=== PATIENT | female | born 1970 | race Caucasian/White ===

== ENCOUNTER 2016-12-23 15:37 | Emergency (ER) | payer MEDICAID ==
--- NOTE | 2016-12-23 16:01 | EDPHY ---
H & P Stated Complaint: LLq pain x 7 days, no bm x 5 days, headache HPI/ROS: CHIEF COMPLAINT: Abdominal pain, constipation. HISTORY OF PRESENT ILLNESS: The patient is a 46 year old female presenting to the emergency department with 4 days of abdominal pain. Her pain is localized to the lower abdomen and intermittently feels sharp and stabbing. The patient has not had a bowel movement for the past 4 days. She usually has 2 BMs per day. She tried Fleet to help with constipation yesterday as well as prunes and fluids, but has not found any relief. Today she developed moderate nausea. She denies fever. No urinary complains. REVIEW OF SYSTEMS: A ten point review of systems was performed and is negative with the exception of the items mentioned in the HPI. Source: Patient Exam Limitations: No limitations - Personal History LMP (Females 10-55): Unknown Current Tetanus/Diphtheria Vaccine: Unsure Current Tetanus Diphtheria and Acellular Pertussis (TDAP): Unsure Tetanus Vaccine Date: < 10 years - Medical/Surgical History Hx Asthma: No Hx Chronic Respiratory Disease: No Hx Diabetes: No Hx Cardiac Disease: No Hx Renal Disease: No Hx Cirrhosis: No Hx Alcoholism: No Hx HIV/AIDS: No Hx Splenectomy or Spleen Trauma: No Other PMH: depression, TUBAL LIGATION - Social History Smoking Status: Current every day smoker Alcohol Use: None Drug Use: Marijuana Additional Social History: Cigarette smoker, 1/2 pack per day. 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 - Physical Exam Exam: General Appearance: Alert. Vital signs reviewed. Blood pressure 125/77 at triage. Eyes: Pupils equal and round, no conjunctival injection, no discharge. Anicteric. ENT, Mouth: Mucous membranes are moist, no oropharyngeal erythema or edema. Neck: No lymphadenopathy, supple. Respiratory: Lungs are clear to auscultation; no wheezes, rales, or rhonchi. Cardiovascular: Regular rate and rhythm; no murmur, rub, or gallop. Gastrointestinal: Abdomen is soft, left lower quadrant tenderness, no guarding , no masses or organomegaly, bowel sounds normal. Skin: Circular or oblong erythematous lesions with central clearing. Flat and slightly itchy. Rectal: Brown stool, no hemorrhoids. Nontender. Back: Nontender to palpation over the thoracolumbar spine. No CVAT. Extremities: No lower extremity edema, no calf tenderness or swelling. Neurological: Alert and oriented. Moving all four extremities easily and equally. Psychiatric: Normal affect. Constitutional: Initial Vital Signs Temperature (C) 36.5 C 12/23/16 15:42 Heart Rate 81 12/23/16 15:42 Respiratory Rate 20 12/23/16 15:42 Blood Pressure 125/77 H 12/23/16 15:42 O2 Sat (%) 97 12/23/16 15:42 O2 Delivery Mode Room Air Allergies/Adverse Reactions: No Known Allergies Allergy (Verified 05/18/15 10:58) Home Medications: Medication Instructions Recorded Zoloft 100mg (RX) 200 mg 08/27/13 Gabapentin 07/26/16 Topamax 07/26/16 Medical Decision Making - Diagnostics Imaging: Study: Renal/pelvic ultrasound was obtained. Results: 1. No ovarian torsion or significant free fluid. 2. Nonvisualization left ovary. 3. Right ovarian 2.3- cm simple cyst or dominant follicle. 4. Prominent left adnexal vessels, which may represent pelvic congestion. Images were interpreted by the radiologist, Dr. Yoder. I viewed the images myself on the PACS system. ED Course/Re-evaluation: IV was established, the patient received 75mcg IV Fentanyl. BMP, CMC, and UA are pending. 5:45 p.m.: UA is normal. Blood work shows no significant findings. I reexamined the patient. She continues to have some abdominal pain. US performed to assess ovaries. Left ovary not visualized, signs of pelvic congestion. She also is constipated, per her report. I looked up the patient in the [facility] and found multiple narcotic prescriptions in the last year. She receives monthly prescriptions for Percocet and Clonazepam. She last filled RX for Percocet , dispense #120, on . She does not have any pain medicine at home now apparently, meaning that the 120 Percocets are gone in three weeks. She has received RX for opiates monthly for the past six months. I discussed this with the patient. She will not receive be receiving any presciption pain medications from [facility], Emergency Department. I do not suspect a life or limb threatening problem or an emergent condition. She does not have pain with palpation of appendix. She has not had vomiting and I don't suspect SBO. No urinary signs or symptoms, making UTI or pyelonephritis quite unlikely. No flank pain, I doubt ureterolithiasis. No upper abdominal pain and I do not suspect cholecystitis or pancreatitis. I think that she is drug seeking. - Data Points Laboratory Results: Laboratory Results 12/23/16 16:40 12/23/16 16:40 Medications Given: Discontinued Medications Fentanyl (Sublimaze) 75 mcg IVP EDNOW ONE Stop: 12/23/16 16:20 Last Admin: 12/23/16 16:40 Dose: 75 mcg Departure - Departure Disposition: Home, Routine, Self-Care Clinical Impression: Constipation Condition: Good Instructions: Constipation (ED) Additional Instructions: Your ultrasound today showed some signs of pelvic congestion. Followup with your primary care physician Dr. Cummings or the referred Category Development Manager for further evaluation. Followup with a litigation partner if your rash persists. Adult Pain & Fever Control: We recommend Acetaminophen (Tylenol) and Ibuprofen (Motrin,Advil) for pain and fever control. When fever is high or pain severe, both drugs can be used at the same time, but at different intervals. Please note the time differences. Your dose is: Acetaminophen 650mg every 4 to 6 hours Ibuprofen 400mg every 4 hours with food Referrals: GOPAL CUMMINGS [Other] - As per Instructions Nanette Borja MD [Medical Doctor] - As per Instructions (Category Development Manager) HERSON CONTRERAS [Non Staff Provider (MD)] - As per Instructions Report Scribed for: Padma Olea Report Scribed by: Nhung Faye Date of Report: 12/23/16 Time of Report: 16:12 Physician Review and Approval Statement: 12/23/16 16:01 Portions of this note were transcribed by the medical billing and coding specialist. I, Dr. Padma Olea, personally performed the history, physical exam, and medical decision- making; and confirmed the accuracy of the information in the transcribed note.
[2016-12-23] MEDS ORDERED: fentaNYL 100 MCG/2 ML INJ IVP ONE (16:19)
[2016-12-23 16:57] LABS: COLOR YELLOW; LEUKOCYTE ESTERASE,URINE NEGATIVE (NEGATIVE); NITRITE,URINE NEGATIVE (NEGATIVE)
[2016-12-23 17:00] LABS: % IMMATURE GRANULYOCYTES 0.6 % (0.0-1.1); ABSOLUTE IMMATURE GRANULOCYTES 0.04 10^3/uL (0.00-0.10); ADD DIFF? NO; ADD MORPH? NO; ADD SCAN? NO; ATYPICAL LYMPHOCYTE FLAG 10 (0-99); FRAGMENT RBC FLAG 0 (0-99); HEMATOCRIT 40.6 % (38.0-47.0); HEMOGLOBIN 13.5 g/dL (12.6-16.3); LEFT SHIFT FLG 0 (0-99); LIPEMIA HEMOLYSIS FLAG 80 (0-99); MEAN CELL HEMOGLOBIN 29.9 pg (27.9-34.1); MEAN CELL HEMOGLOBIN CONCENTR. 33.3 g/dL (32.4-36.7); MEAN PLATELET VOLUME 11.4 fL (8.7-11.7); PLATELET CLUMPS FLAG 0 (0-99); PLATELET COUNT 232 10^3/uL (150-400); RED BLOOD CELL COUNT 4.51 10^6/uL (4.18-5.33); RED CELL DISTRIBUTION WIDTH 13.8 % (11.5-15.2)
[2016-12-23 17:07] LABS: ANION GAP 9 mEq/L (8-16); CALCIUM 9.4 mg/dL (8.5-10.4); CARBON DIOXIDE 20 mEq/l (22-31); CHLORIDE 110 mEq/L (97-110); CREATININE 0.8 mg/dL (0.6-1.0); GLOMERULAR FILTRATION RATE > 60; GLUCOSE 97 mg/dL (70-100); POTASSIUM 4.3 mEq/L (3.5-5.2); SODIUM 139 mEq/L (134-144)
[2016-12-23] MEDS ORDERED: OXYCODONE/APAP 5/325MG PREPACK#4 BTL TAKEHOME ONE (20:26)
[2016-12-23 20:50] VITALS: BP 133/74; PULSE 66; RESP 16; TEMP 97.9; O2SAT 96
== END 2016-12-23 20:50 | disposition home or self-care (01) ==
DX: K59.00 Constipation, unspecified (principal); F17.200 Nicotine dependence, unspecified, uncomplicated
CPT/HCPCS: 96374; J3010

== ENCOUNTER 2017-05-24 11:30 | Emergency (ER) | payer MEDICAID ==
[2017-05-24 11:34] VITALS: BP 127/98; PULSE 68; RESP 16; TEMP 97.7; O2SAT 97
[2017-05-24 11:47] LABS: COLOR AMBER; LEUKOCYTE ESTERASE,URINE 3+ (NEGATIVE); NITRITE,URINE NEGATIVE (NEGATIVE)
[2017-05-24 12:00] LABS: MUCUS 2+ /lpf (NONE-1+); RBC,URINE 25-50 /hpf (0-3); WBC,URINE 50-182 /hpf (0-3)
--- NOTE | 2017-05-24 12:25 | EDPHY ---
H & P Stated Complaint: anal pain (thinks it might be hemmoroids) burn with UA Time Seen by Provider: 05/24/17 12:05 HPI/ROS: Chief complaint: Anal pain, pain with urination History of present illness: This is a 47-year-old female who presents to the emergency department for evaluation of anal pain. Patient reports the onset of symptoms over the last 2 days. Symptoms have been persistent. She is concerned this is secondary to hemorrhoids, which may be secondary to the fact that she is on narcotic pain medicines which have made her constipated. She has used preparation H and Sitz baths with minimal improvement. In addition around the same time she started developed pain with urination. Symptoms have been persistent. No report of urinary frequency, hesitancy or hematuria, no flank or back pain. There has been no associated fevers. No abdominal pain, no nausea or vomiting. Review of systems: A 10 point review of systems was obtained and other than described above was negative - Personal History LMP (Females 10-55): 22-28 Days Ago Current Tetanus/Diphtheria Vaccine: Yes Current Tetanus Diphtheria and Acellular Pertussis (TDAP): Yes Tetanus Vaccine Date: < 10 years - Medical/Surgical History Hx Asthma: No Hx Chronic Respiratory Disease: No Hx Diabetes: No Hx Cardiac Disease: No Hx Renal Disease: No Hx Cirrhosis: No Hx Alcoholism: No Hx HIV/AIDS: No Hx Splenectomy or Spleen Trauma: No Other PMH: depression, TUBAL LIGATION - Social History Smoking Status: Current every day smoker - Physical Exam Exam: General Appearance: Alert and no distress. Eyes: Pupils equal and round no injection. Respiratory: Chest is non tender, lungs are clear to auscultation. Cardiac: regular rate and rhythm Gastrointestinal: Abdomen is soft and non tender, no masses, bowel sounds normal. Rectal exam does reveal a nonthrombosed hemorrhoid at the 1 o'clock position. Exam was performed with a refund clerk. Genitourinary: No CVA tenderness. Musculoskeletal: Neck is supple and non tender. Extremities have full range of motion and are non tender. Skin: No rashes or lesions. Neurological: Alert and oriented x4. Strength and sensation intact and symmetrical. Constitutional: Initial Vital Signs Temperature (C) 36.5 C 05/24/17 11:32 Heart Rate 68 05/24/17 11:32 Respiratory Rate 16 05/24/17 11:32 Blood Pressure 127/98 H 05/24/17 11:32 O2 Sat (%) 97 05/24/17 11:32 O2 Delivery Mode Room Air Allergies/Adverse Reactions: No Known Allergies Allergy (Verified 05/18/15 10:58) Home Medications: Medication Instructions Recorded Zoloft 100mg (RX) 200 mg 08/27/13 Gabapentin 07/26/16 Topamax 07/26/16 Cephalexin [Keflex] 500 mg PO TID 7 Days 05/24/17 Medical Decision Making ED Course/Re-evaluation: Patient seen under the supervision of my secondary supervising physician Dr. Antonio Haynes. Patient presents to the emergency department for evaluation of anal pain. She does have a non-thrombosed hemorrhoid. I do not appreciate evidence of complications. My suspicion for other pathology is low. Further she has some dysuria. Urinalysis concerning for an infection. No evidence of complications such as pyelonephritis. I have discussed symptomatic care of the hemorrhoid using Anusol HC, stool softeners and Sitz baths and the treatment of her urinary tract infection with Keflex. She is asked to follow up with her primary care doctor for recheck. Return precautions are given. Patient voiced understanding and agreement with plan. Differential Diagnosis: Included but not limited to external hemorrhoid, internal hemorrhoid, unlikely proctitis, perianal or perirectal abscess as well as cystitis, no evidence of pyelonephritis or nephrolithiasis - Data Points Laboratory Results: 05/24/17 11:30 Urine Color NADEEM Urine Appearance MODERATELY TURBID Urine pH 5.0 (5.0-7.5) Ur Specific Kim 1.024 (1.002-1.030) Urine Protein 1+ H (NEGATIVE) Urine Ketones NEGATIVE (NEGATIVE) Urine Blood 1+ H (NEGATIVE) Urine Nitrate NEGATIVE (NEGATIVE) Urine Bilirubin NEGATIVE (NEGATIVE) Urine Urobilinogen NEGATIVE EU EU (0.2-1.0) Ur Leukocyte Esterase 3+ H (NEGATIVE) Urine RBC 25-50 /hpf H /hpf (0-3) Urine WBC 50-182 /hpf H /hpf (0-3) Ur Epithelial Cells 4+ /lpf H /lpf (NONE-1+) Urine Mucus 2+ /lpf H /lpf (NONE-1+) Urine Glucose NEGATIVE (NEGATIVE) Departure - Departure Disposition: Home, Routine, Self-Care Clinical Impression: Acute hemorrhoid, UTI (urinary tract infection) Condition: Good Instructions: Hemorrhoids (ED), Urinary Tract Infection in Women (ED) Additional Instructions: Follow-up with your primary care doctor this week for recheck Take antibiotics as prescribed until finished even if feeling better Use Anusol HC for your hemorrhoid Please use a stool softener as well for the hemorrhoid You can also use glycerin suppositories for the hemorrhoid Perform Sitz baths as discussed for comfort If symptoms worsen or new symptoms develop return to the emergency room for recheck Referrals: GOPAL GARDUNO [Other] - As per Instructions Prescriptions: Cephalexin [Keflex] 500 mg PO TID 7 Days
== END 2017-05-24 12:20 | disposition home or self-care (01) ==
DX: K64.9 Unspecified hemorrhoids (principal); N39.0 Urinary tract infection, site not specified; F17.200 Nicotine dependence, unspecified, uncomplicated; Z98.51 Tubal ligation status